=== PATIENT | male | born 1940 | race Caucasian/White ===

== ENCOUNTER → 2016-07-21 | Outpatient (REF) | LOC: ZLAB.WCH 19:50 | DX: Z01.89 Encounter for other specified special examinations (principal) | CPT/HCPCS: G0103 ==

== ENCOUNTER → 2016-09-14 | Outpatient (REF) | LOC: ZLAB.WCH 10:59 | DX: Z01.89 Encounter for other specified special examinations (principal) ==

== ENCOUNTER → 2017-07-02 | Outpatient (REF) | LOC: ZLAB.WCH 16:05 | DX: Z01.89 Encounter for other specified special examinations (principal) | CPT/HCPCS: G0103 ==

== ENCOUNTER → 2017-10-09 | Outpatient (REF) | LOC: ZLAB.WCH 17:40 | DX: Z01.89 Encounter for other specified special examinations (principal) ==

== ENCOUNTER → 2017-12-30 | Outpatient (REF) | LOC: ZLAB.WCH 10:44 | DX: Z01.89 Encounter for other specified special examinations (principal) | CPT/HCPCS: G0103 ==

== ENCOUNTER → 2018-01-11 | Outpatient (REF) | LOC: ZLAB.WCH 16:33 | DX: Z01.89 Encounter for other specified special examinations (principal) ==